=== PATIENT | male | born 1970 | race American Indian/Alaskan Native ===

== ENCOUNTER 2019-04-29 01:51 | Emergency (ER) | payer SELFPAY ==
[2019-04-29 01:56] VITALS: BP 129/86
--- NOTE | 2019-04-29 03:00 | XRay Report ---
CHEST 2 VIEWS, 04/29/2019 2:22 AM INDICATION: Cough. Fever. COMPARISON: None FINDINGS: Support devices: None Heart: The heart appears normal in size. Lungs/pleura: The lungs are clear of focal airspace disease or significant pleural effusion. Additional findings: None IMPRESSION: 1. No evidence of acute cardiopulmonary process. Signer Name: Isabella Luke MD Signed: 04/29/2019 2:55 AM Workstation Name: [email or web address]
[2019-04-29] MEDS ORDERED: ONDANSETRON 4 MG ODT TAB PO ONE (03:26)
[2019-04-29] MEDS ORDERED: IBUPROFEN 800 MG TAB PO ONE (03:26)
--- NOTE | 2019-04-29 05:22 | Emergency Department Report ---
- General Chief Complaint: Upper Respiratory Infection Stated Complaint: FEVER, WEAKNESS, SORE THROAT, HEADACHE Time Seen by Provider: 04/29/19 03:20 Source: patient Mode of arrival: Ambulatory Limitations: No Limitations - History of Present Illness Initial Comments: Mr. Coles is a 49-year-old white male who presents for cough fevers chills body aches, times one today started yesterday. Multiple sick contacts on with flu. Patient denies history of asthma or bronchitis. There is no shortness of breath, no wheezing ,there is no nausea vomiting. Patient is tolerating by mouth hydration. Symptoms are exacerbated by environmental exposure and activity. Symptoms are relieved by nothing. MAXIMUM TEMPERATURE is 100.1 MD Complaint: fever, cough, sore throat, rhinorrhea, nasal congestion, sinus pain Onset/Timin -: days(s) Severity: moderate Severity scale (0 -10): 5 Quality: aching Consistency: constant Improves With: nothing Worsens With: activity Context: sick contacts Associated Symptoms: fever, chills, rhinorrhea, nasal congestion, sore throat, cough, nausea, ear pain. denies: chest pain, vomiting, diarrhea, dysuria, rash Treatments Prior to Arrival: none - Related Data Previous Rx's Medication Instructions Recorded Last Taken Type Amoxicillin/Potassium Clav 1 each PO BID 10 Days #20 tablet 04/29/19 Unknown Rx [Augmentin 875-125 Tablet] Guaifenesin/Pseudoephedrne HCl 1 each PO BID PRN #24 tab.er.12h 04/29/19 Unknown Rx [Mucinex D ER 1,200-120 mg Tab] Ibuprofen [Motrin 800 MG tab] 800 mg PO Q8HR PRN #30 tablet 04/29/19 Unknown Rx Allergies Allergy/AdvReac Type Severity Reaction Status Date / Time No Known Allergies Allergy Unverified 04/29/19 01:55 ED Review of Systems ROS: Stated complaint: FEVER, WEAKNESS, SORE THROAT, HEADACHE Other details as noted in HPI Constitutional: chills, fever, malaise Eyes: denies: eye pain, eye discharge, vision change ENT: ear pain, throat pain, congestion Respiratory: cough. denies: shortness of breath, wheezing Cardiovascular: denies: chest pain, palpitations Endocrine: no symptoms reported Gastrointestinal: denies: abdominal pain, nausea, vomiting, diarrhea Genitourinary: denies: urgency, dysuria Musculoskeletal: denies: back pain, joint swelling, arthralgia Skin: denies: rash, lesions Neurological: denies: headache, weakness, paresthesias Psychiatric: denies: anxiety, depression Hematological/Lymphatic: denies: easy bleeding, easy bruising ED Past Medical Hx - Past Medical History Previous Medical History?: Yes Hx Hypertension: Yes Hx Psychiatric Treatment: Yes (Anxiety) - Surgical History Past Surgical History?: Yes Additional Surgical History: Right wrist - Social History Smoking Status: Never Smoker - Medications Home Medications: Home Medications Medication Instructions Recorded Confirmed Last Taken Type Amoxicillin/Potassium Clav 1 each PO BID 10 Days #20 tablet 04/29/19 Unknown Rx [Augmentin 875-125 Tablet] Guaifenesin/Pseudoephedrne HCl 1 each PO BID PRN #24 tab.er.12h 04/29/19 Unknown Rx [Mucinex D ER 1,200-120 mg Tab] Ibuprofen [Motrin 800 MG tab] 800 mg PO Q8HR PRN #30 tablet 04/29/19 Unknown Rx ED Physical Exam - General Limitations: No Limitations General appearance: alert, in no apparent distress - Head Head exam: Present: atraumatic, normocephalic - Eye Eye exam: Present: normal appearance, PERRL, EOMI Pupils: Present: normal accommodation - ENT ENT exam: Present: mucous membranes moist - Expanded ENT Exam Expanded Ear exam: Present: normal external inspection TM/Canal exam: Erythema: Right TM Throat exam: Positive: tonsillar erythema, tonsillomegaly, other (uvula midline no exudate , no lesions). Negative: tonsillar exudate, R peritonsillar mass, L peritonsillar mass - Neck Neck exam: Present: normal inspection, full ROM, lymphadenopathy. Absent: tenderness, meningismus, thyromegaly - Expanded Neck Exam Expanded Neck exam: Absent: tenderness, midline deformity, anterior neck swelling, thyroid mass, carotid bruit, tracheal deviation - Respiratory Respiratory exam: Present: normal lung sounds bilaterally, chest wall tenderness (right lateral chest wall tenderness with deep palpation). Absent: respiratory distress, wheezes, stridor - Cardiovascular Cardiovascular Exam: Present: regular rate, normal rhythm, normal heart sounds. Absent: systolic murmur, diastolic murmur, rubs, gallop - GI/Abdominal GI/Abdominal exam: Present: soft, normal bowel sounds. Absent: distended, tenderness, guarding, rebound, rigid, bruit, hernia - Rectal Rectal exam: Present: deferred - Extremities Exam Extremities exam: Present: normal inspection, full ROM, normal capillary refill. Absent: tenderness, pedal edema - Back Exam Back exam: Present: normal inspection, full ROM. Absent: tenderness, CVA tenderness (R), CVA tenderness (L), vertebral tenderness, rash noted - Neurological Exam Neurological exam: Present: alert, oriented X3, CN II-XII intact, normal gait - Psychiatric Psychiatric exam: Present: normal affect, normal mood - Skin Skin exam: Present: warm, dry, intact, normal color. Absent: rash ED Course Vital Signs 04/29/19 01:54 Temperature 99.5 F Pulse Rate 107 H Respiratory 18 Rate Blood Pressure 129/86 O2 Sat by Pulse 94 Oximetry ED Medical Decision Making - Lab Data Labs 04/29/19 02:07 Influenza A (Rapid) Negative Influenza B (Rapid) Negative Group A Strep Rapid Negative - Radiology Data Radiology results: report reviewed, image reviewed Ordering Physician: ABDULLAHI ESCALANTE NP Date of Service: 04/29/19 Procedure(s): XR chest routine 2V Accession Number(s): [id number] cc: ABDULLAHI ESCALANTE NP Fluoro Time In Minutes: CHEST 2 VIEWS, 04/29/2019 2:22 AM INDICATION: Cough. Fever. COMPARISON: None FINDINGS: Support devices: None Heart: The heart appears normal in size. Lungs/pleura: The lungs are clear of focal airspace disease or significant pleural effusion. Additional findings: None IMPRESSION: 1. No evidence of acute cardiopulmonary process. Signer Name: Isabella Luke MD Signed: 04/29/2019 2:55 AM Workstation Name: [id number] Transcribed By: EB Dictated By: Isabella Luke MD Electronically Authenticated By: Isabella Luke MD Signed Date/Time: 04/29/19254 DD/ 4 TD/TT: - Medical Decision Making Flu and rapid strep swabs are negative, patient does have confirmed AOM, this is likely viral syndrome, blood pressure is normal , heart rate 87 this time plan: Augmentin by mouth twice a day for 10, ibuprofen when necessary pain fever, Mucinex D when necessary cough, lung sounds are clear there is no wheezing, patient will continue to hydrate home with follow-up with PCP in 2-3 days patient verbalizes agreement and understanding of discharge plan. Patient will be DC'd home in stable condition at this time. Critical care attestation.: If time is entered above; I have spent that time in minutes in the direct care of this critically ill patient, excluding procedure time. ED Disposition Clinical Impression: Acute viral syndrome AOM (acute otitis media) Qualifiers: Otitis media type: serous Laterality: right Recurrence: non-recurrent Qualified Code(s): H65.01 - Acute serous otitis media, right ear Disposition: DC-01 TO HOME OR SELFCARE Is pt being admited?: No Does the pt Need Aspirin: No Condition: Stable Instructions: Otitis Media (ED), Viral Syndrome (ED) Prescriptions: Amoxicillin/Potassium Clav [Augmentin 875-125 Tablet] 1 each PO BID 10 Days #20 tablet Ibuprofen [Motrin 800 MG tab] 800 mg PO Q8HR PRN #30 tablet PRN Reason: pain fever Guaifenesin/Pseudoephedrne HCl [Mucinex D ER 1,200-120 mg Tab] 1 each PO BID PRN #24 tab.er.12h PRN Reason: cough congestion Referrals: AGUEDA PALMER MD [Staff Physician] - 3-5 Days Forms: Work/School Release Form(ED) Time of Disposition: 05:59
== END 2019-04-29 06:10 | disposition home or self-care (01) ==
LOC: ED 01:51
DX: H66.90 Otitis media, unspecified, unspecified ear (principal); B34.9 Viral infection, unspecified; I10 Essential (primary) hypertension; F41.9 Anxiety disorder, unspecified; Z98.890 Other specified postprocedural states
CPT/HCPCS: 71046; 87116; 87400; 87430; Q0162